=== PATIENT | male | born 1995 | race Caucasian/White ===

== ENCOUNTER 2021-03-02 12:23 | Outpatient (REF) | payer MEDICAID, SELFPAY ==
[2021-03-03 09:37] LABS: HBs Antibody, Quant <3.1 mIU/mL (See Note); Hepatitis B Surface Ab Negative (See Note)
[2021-03-03 10:19] LABS: HIV-1/2 Ag & Ab Screen Negative (Negative)
[2021-03-03 10:34] LABS: Hepatitis C Ab w Rflx HCV PCR Negative (Negative)
[2021-03-03 10:41] LABS: Syphilis Serology (RPR) Negative (Negative)
[2021-03-06 15:20] LABS: Chlamydia Result Negative (Negative); GC Result Negative (Negative)
== END 2021-03-02 12:24 | disposition home or self-care (01) ==
LOC: NCHCN 12:23
PROVIDERS: Nurse Practitioner Family; Visit Provider Nurse Practitioner Family
DX: Z11.3 Encounter for screening for infections with a predominantly sexual mode of transmission (principal); Z11.59 Encounter for screening for other viral diseases; Z11.4 Encounter for screening for human immunodeficiency virus [HIV]
CPT/HCPCS: 86706; 86803; 87389; 87491; 87591; 86592